=== PATIENT | male | born 1945 | race Caucasian/White ===

== ENCOUNTER 2016-11-22 11:49 | Emergency (ER) | payer OTHER ==
[2016-11-22 13:26] LABS: BASOPHIL 0.4 % (0-2); EOSINOPHIL 0 % (0-7); HCT 30.6 % (42.0-52.0); HGB 10.7 g/dl (13.2-18.0); LYMPHOCYTE 12.9 % (15-48); MCH 32.4 pg (25.0-31.0); MCV 92.7 fL (78.0-100.0); MONOCYTE 24.8 % (0-12); MPV 9.8 fL (6.0-9.5); PLT 165 K/uL (150-400); RDW 13.1 % (11.5-14.0)
[2016-11-22 13:27] LABS: BILIRUBIN NEGATIVE (NEGATIVE); BLOOD NEGATIVE Ery/uL (NEGATIVE); CLARITY CLEAR (CLEAR); COLOR YELLOW (YELLOW); GLUCOSE (U) NORMAL (NORMAL); KETONE (U) NEGATIVE (NEGATIVE); LEUKOCYTES NEGATIVE Leu/uL (NEGATIVE); NITRITE NEGATIVE (NEGATIVE); PROTEIN NEGATIVE (NEGATIVE); UROBILINOGEN 0.2 mg/dL (0.2-1.0)
[2016-11-22 13:28] LABS: NEUTROPHIL 61.9 % (41-80)
[2016-11-22 13:48] LABS: CREATININE 0.8 mg/dL (0.7-1.2); POTASSIUM 3.2 mmol/L (3.5-5.1)
[2016-11-22 13:56] LABS: INR 3.67 (0.9-1.2); PROTHROMBIN TIME 35.6 SECONDS (11.7-14.0)
== END 2016-11-22 15:36 | disposition home or self-care (01) ==
LOC: FER 11:49
PROVIDERS: Emergency Medicine
DX: R33.9 Retention of urine, unspecified (principal); R79.1 Abnormal coagulation profile; N32.89 Other specified disorders of bladder; R10.30 Lower abdominal pain, unspecified; C34.90 Malignant neoplasm of unspecified part of unspecified bronchus or lung; I10 Essential (primary) hypertension; Z86.711 Personal history of pulmonary embolism; Z88.8 Allergy status to other drugs, medicaments and biological substances; Z79.01 Long term (current) use of anticoagulants; Z79.899 Other long term (current) drug therapy; Z95.1 Presence of aortocoronary bypass graft; Z95.0 Presence of cardiac pacemaker
CPT/HCPCS: 36415; 80048; 81003; 85025; 85610

== ENCOUNTER 2016-11-22 23:57 | Emergency (ER) | payer OTHER ==
[2016-11-23 00:46] LABS: BILIRUBIN 1+ mg/dL (NEGATIVE); BLOOD 3+ Ery/uL (NEGATIVE); CLARITY HAZY (CLEAR); COLOR YELLOW (YELLOW); GLUCOSE (U) NORMAL (NORMAL); KETONE (U) 1+ (SMALL) mg/dL (NEGATIVE); LEUKOCYTES 1+ Leu/uL (NEGATIVE); NITRITE NEGATIVE (NEGATIVE); PROTEIN 1+ mg/dL (NEGATIVE); SPECIFIC GRAVITY 1.025 (1.001-1.030); UROBILINOGEN 0.2 mg/dL (0.2-1.0)
[2016-11-23 00:50] LABS: BACTERIA 1+; MUCOUS MODERATE
== END 2016-11-23 01:50 | disposition home or self-care (01) ==
LOC: FER 23:57
PROVIDERS: Emergency Medicine
DX: T83.091A Other mechanical complication of indwelling urethral catheter, initial encounter (principal); R33.9 Retention of urine, unspecified; R82.90 Unspecified abnormal findings in urine; Z88.5 Allergy status to narcotic agent; Z88.8 Allergy status to other drugs, medicaments and biological substances
CPT/HCPCS: 81001; 87088; 99283

== ENCOUNTER 2016-11-30 10:09 | Emergency (ER) | payer OTHER ==
[2016-11-30 11:01] LABS: BILIRUBIN NEGATIVE (NEGATIVE); BLOOD TRACE-LYSED Ery/uL (NEGATIVE); CLARITY CLEAR (CLEAR); COLOR YELLOW (YELLOW); GLUCOSE (U) NORMAL (NORMAL); KETONE (U) NEGATIVE (NEGATIVE); LEUKOCYTES NEGATIVE Leu/uL (NEGATIVE); NITRITE NEGATIVE (NEGATIVE); PROTEIN NEGATIVE (NEGATIVE); UROBILINOGEN 0.2 mg/dL (0.2-1.0); pH 6.5 (5.0-9.0)
[2016-11-30 11:30] LABS: CREATININE 0.7 mg/dL (0.7-1.2); POTASSIUM 3.6 mmol/L (3.5-5.1)
[2016-11-30 11:31] LABS: BACTERIA TRACE
== END 2016-11-30 13:28 | disposition home or self-care (01) ==
LOC: FER 10:09
PROVIDERS: Emergency Medicine
DX: R33.9 Retention of urine, unspecified (principal); M54.9 Dorsalgia, unspecified; Z88.8 Allergy status to other drugs, medicaments and biological substances
CPT/HCPCS: 36415; 80048; 81001

== ENCOUNTER 2016-12-09 14:19 | Emergency (ER) | payer OTHER | END 2016-12-09 15:25 | disposition home or self-care (01) | LOC: FER 14:19 | DX: R33.9 Retention of urine, unspecified (principal); I11.9 Hypertensive heart disease without heart failure; Z85.118 Personal history of other malignant neoplasm of bronchus and lung; Z95.0 Presence of cardiac pacemaker | CPT/HCPCS: 99283 ==

== ENCOUNTER 2016-12-22 02:31 | Emergency (ER) | payer OTHER ==
[2016-12-22 03:39] LABS: BASOPHIL 0.2 % (0-2); MCH 32.7 pg (25.0-31.0); MCHC 33.3 g/dL (32.0-36.0); MONOCYTE 15.6 % (0-12); MPV 10.4 fL (6.0-9.5); NEUTROPHIL 75.2 % (41-80); PLT 105 K/uL (150-400); RBC 3.06 M/uL (4.70-6.00); RDW 16.4 % (11.5-14.0)
[2016-12-22 03:57] LABS: POTASSIUM 3.6 mmol/L (3.5-5.1)
[2016-12-22 04:11] LABS: ALBUMIN 3.3 g/dL (3.4-4.8); BILIRUBIN - TOTAL 0.5 mg/dL (0.1-1.0); CREATININE 0.8 mg/dL (0.7-1.2); GLOBULIN (CALCULATION) 2.4 g/dL (2.2-4.2); TOTAL PROTEIN 5.7 g/dL (6.4-8.3)
[2016-12-22 05:01] LABS: BILIRUBIN NEGATIVE (NEGATIVE); BLOOD 3+ Ery/uL (NEGATIVE); GLUCOSE (U) NORMAL (NORMAL); KETONE (U) 1+ (SMALL) mg/dL (NEGATIVE); LEUKOCYTES 1+ Leu/uL (NEGATIVE); NITRITE NEGATIVE (NEGATIVE); PROTEIN 1+ mg/dL (NEGATIVE); SPECIFIC GRAVITY 1.025 (1.001-1.030); UROBILINOGEN 0.2 mg/dL (0.2-1.0)
[2016-12-22 05:02] LABS: CLARITY CLOUDY (CLEAR); COLOR YELLOW (YELLOW)
[2016-12-22 05:05] LABS: BACTERIA 1+; URINARY RBC 20-50
== END 2016-12-22 05:23 | disposition home or self-care (01) ==
LOC: FER 02:31
PROVIDERS: Emergency Medicine
DX: Z46.82 Encounter for fitting and adjustment of non-vascular catheter (principal); N39.0 Urinary tract infection, site not specified; R05 Cough; F17.200 Nicotine dependence, unspecified, uncomplicated; Z85.118 Personal history of other malignant neoplasm of bronchus and lung
CPT/HCPCS: 36415; 80053; 81001; 85025